=== PATIENT | male | born 2000 | race Asian ===

== ENCOUNTER 2024-04-07 20:15 | Emergency (ER) | payer BC, SELFPAY ==
[2024-04-07 20:18] VITALS: BP 128/79
--- NOTE | 2024-04-07 20:40 | ED.GENMED ---
History of Present Illness
General
Chief Complaint: Abdominal Symptoms
Source: patient
Time Seen by Provider: 04/07/24 20:36
History of Present Illness
History of Present Illness:
43-year-old male presents to the emergency room complaint nausea vomiting diarrhea. Symptoms began over the past 24 hours. He had multiple episodes of vomiting multiple episodes of diarrhea. No blood or mucus. No known sick contacts. No fever
or abdominal pain. He denies any previous abdominal operations. He does not take any prescription medications.
Phy Exam
Physical Exam
Physical Exam:
General: Awake, Alert, Oriented X3. No acute distress.
Vitals: Tachycardic
Head: Atraumatic
Eyes: Pupils equal, EOMI
Throat: Airway intact, no exudates, dry mucosa
Neck: Trachea midline
Lungs: Clear and equal b/l
Heart: Regular rate, no murmurs
Abd: Soft, Nontender, No pulsatile mass
Neuro: Nonfocal
Skin: Warm, dry, no rash
Extremities: pulses equal b/l, no edema
Course
Orders/Labs/Results
Orders:
Orders
04/07/24 20:21
Electrocardiogram (*1) Urgent
Reason for Study: Tachycardia
EKG- Treatment ONCE
04/07/24 20:40
Lactated Ringers [Lr] 1,000 ml IV BOLUS
04/07/24 20:53
Complete Blood Count/With Diff Urgent
Comprehensive Metabolic Panel Urgent
Abnormal Lab Results
04/07/24
20:53
WBC 11.3 H 10^3/uL
(4.8-10.8)
Absolute Neuts (auto) 10.1 H 10^3/uL
(1.4-6.5)
Absolute Lymphs (auto) 0.4 L 10^3/uL
(1.2-3.4)
Absolute Monos (auto) 0.7 H 10^3/uL
(0.1-0.6)
Neutrophils % 89.2 H %
(42.2-75.2)
Lymphocytes % 3.9 L %
(20.5-51.1)
Sodium 134 L mmol/L
(135-145)
Potassium 3.3 L mmol/L
(3.5-5.1)
Carbon Dioxide 21 L mmol/L
(22-30)
Glucose 129 H mg/dl
(70-99)
04/07/24 20:53
04/07/24 20:53
Vital Signs
Initial and Last Documented VS:
Initial Vital Signs
Temp Pulse Resp BP Pulse Ox
99.8 F 131 18 128/79 97
04/07/24 20:18 04/07/24 20:18 04/07/24 20:18 04/07/24 20:18 04/07/24 20:18
Last Documented Vital Signs
Temp Pulse Resp BP Pulse Ox
99.8 F 131 18 128/79 97
04/07/24 20:18 04/07/24 20:18 04/07/24 20:18 04/07/24 20:18 04/07/24 20:18
MDM/Problems Addressed
Differential Diagnosis Includes:
Gastroenteritis, dehydration, electrolyte abnormality
MDM/Problems Addressed:
Patient felt better after IV fluid and IV Zofran. Labs showed no significant abnormalities. Patient stable for discharge home.
*Pulse Oximetry
Patient hypoxic: no
*Critical Care Note
Total Time (30-74mins, 75-104mins- exclusive of procedures): Not Applicable
ED Attending Note
-
Portions of this chart may have been created with voice recognition software.� Occasional wrong word or��sound alike� substitutions may have occurred due to the inherent limitations of voice recognition software.
Discharge Plan
Departure
Patient Disposition: Home (Routine Discharge)
Date of Disposition: 04/07/24
Time of Disposition: 23:36
Patient with high blood pressure during this ER visit?: No
Condition: Good
Discharge Problem:
Gastroenteritis, Acute nausea with nonbilious vomiting, Acute diarrhea, Acute dehydration
Instructions: Viral gastroenteritis in adults
Prescriptions:
New
ondansetron 4 mg tablet,disintegrating
4 mg PO TID PRN (Reason: nausea and vomiting) Qty: 10 0RF
Referrals:
Edgardo Tidwell DO [Family Provider] -
Interventions
Interventions:
*Risk Screen - Suicide Last Done: 04/07/24 20:18
*General Assessment Last Done: 04/07/24 20:18
*Neglect/Abuse Screening Last Done: 04/07/24 20:18
ED- Fall Risk Assessment Last Done: 04/07/24 23:45
*ED COVID-19 Vaccine History Last Done: 04/07/24 21:33
*Nursing Disposition Last Done: 04/07/24 23:45
SV-Alxcij-Lmpmsvrflw Assessment Last Done: 04/07/24 21:33
Discharge Date and Time
Discharge Date/Time: 04/07/24 23:45
Print Language: YI
[2024-04-07] MEDS: LR 1000 IV (20:59)
[2024-04-07 21:06] LABS: % Basophils 0.2 % (0-2); % Immature Granulocytes 0.3 % (0-0.5); % Lymphocytes 3.9 % (20.5-51.1); % Monocytes 6.4 % (1.7-9.3); % Neutrophils 89.2 % (42.2-75.2); Absolute Lymphocytes 0.4 10^3/uL (1.2-3.4); Absolute Monocytes 0.7 10^3/uL (0.1-0.6); Absolute Neutrophils 10.1 10^3/uL (1.4-6.5); Hematocrit 43.9 % (39.0-52.0); Hemoglobin 15.8 g/dL (13.0-18.0); Mean Corpuscular Hgb 29.8 pg (27.0-31.0); Mean Corpuscular Volume 82.7 fL (80.0-94.0); Mean Platelet Volume 9.4 fL (7.4-10.4); Nucleated Red Blood Cells % 0 % (-); Platelet Count 277 10^3/uL (130-400); Red Blood Cell Count 5.31 10^6/uL (4.70-6.10); Red Cell Dist. Width 11.9 % (11.5-14.5); White Blood Cell Count 11.3 10^3/uL (4.8-10.8)
[2024-04-07 21:50] LABS: ALT (SGPT) 26 U/L (0-50); AST (SGOT) 23 U/L (17-59); Albumin 4.6 g/dl (3.5-5.0); Alkaline Phosphatase 66 U/L (38-126); Blood Urea Nitrogen 17 mg/dl (9-20); Calcium 9.1 mg/dl (8.4-10.2); Carbon Dioxide 21 mmol/L (22-30); Chloride 99 mmol/L (98-107); Glucose 129 mg/dl (70-99); Potassium 3.3 mmol/L (3.5-5.1); Sodium 134 mmol/L (135-145); Total Bilirubin 1.3 mg/dl (0.2-1.3); Total Protein 7.3 g/dl (6.3-8.2); eGFR > 60.00
== END 2024-04-07 23:45 | disposition home or self-care (01) ==
LOC: EMR 20:15
PROVIDERS: EMERGENCY PHYSICIAN Emergency Medicine; FAMILY PHYSICIAN Family Medicine
DX: K52.9 Noninfective gastroenteritis and colitis, unspecified (principal); E86.0 Dehydration; R11.2 Nausea with vomiting, unspecified; R19.7 Diarrhea, unspecified; R00.0 Tachycardia, unspecified
CPT/HCPCS: 99284; 80053; 85025; 93005